=== PATIENT | female | born 1985 | race American Indian/Alaskan Native ===

== ENCOUNTER 2020-11-12 20:31 | Emergency (ER) | payer OTHER ==
[2020-11-12] MEDS ORDERED: cloNIDine 0.2 MG TAB PO STA (21:31)
[2020-11-12] MEDS ORDERED: ALBUTEROL 2.5 MG/3 ML NEBU IH ONE (21:35)
[2020-11-12] MEDS ORDERED: predniSONE 50 MG TAB PO STA (21:35)
--- NOTE | 2020-11-12 22:35 | XRay Report ---
CHEST 2 VIEWS INDICATION / CLINICAL INFORMATION: cough and cp. COMPARISON: None available. FINDINGS: SUPPORT DEVICES: None. HEART / MEDIASTINUM: No significant abnormality. LUNGS / PLEURA: No significant pulmonary or pleural abnormality. No pneumothorax. ADDITIONAL FINDINGS: No significant additional findings. IMPRESSION: 1. No acute findings. Signer Name: Deven Keen MD Signed: 11/12/2020 10:30 PM Workstation Name: [id number]
[2020-11-13] MEDS ORDERED: ALBUTEROL 2.5 MG/3 ML NEBU IH ONE (00:38)
[2020-11-13] MEDS ORDERED: predniSONE 50 MG TAB PO STA (00:38)
[2020-11-13] MEDS ORDERED: cloNIDine 0.2 MG TAB PO STA (00:38)
[2020-11-13 02:03] VITALS: BP 148/102
== END 2020-11-13 03:30 | disposition home or self-care (01) ==
LOC: ED 20:31
DX: R07.89 Other chest pain (principal); R05 Cough
CPT/HCPCS: 71046; 93005; 94640; 99283; J7512; 94644

== ENCOUNTER 2021-01-19 17:43 | Emergency (ER) | payer OTHER ==
[2021-01-19 18:08] VITALS: BP 212/141
[2021-01-19] MEDS ORDERED: cloNIDine 0.1 MG TAB PO ONE (18:09)
--- NOTE | 2021-01-19 18:11 | Event Note ---
ED Screening Note ED Screening Note: Patient is a 35-year-old female presents emergency room complaints of substernal chest pain that began a couple days ago She states it feels like a sharp pain She has associated shortness of breath She denies any radiation of the pain She denies any fever, nausea, vomiting, diarrhea Past medical history of hypertension and COPD and asthma She states that she is no longer smoking She reports that she took 4 medications this morning for her blood pressure This initial assessment/diagnostic orders/clinical plan/treatment(s) is/are subject to change based on patients health status, clinical progression and re- assessment by fellow clinical providers in the ED. Further treatment and workup at subsequent clinical providers discretion. Patient/guardian urged not to elope from the ED as their condition may be serious if not clinically assessed and managed. Initial orders include: Patient is tachycardic but breath sounds are clear Chest pain protocol ordered Patient given 0.1 mg of clonidine pt will need to go to the MAIN ED [facility] for MD erwin
[2021-01-19 18:55] LABS: Basophils # (Auto) 0.1 K/mm3 (0.0-0.1); Basophils % (Auto) 0.6 % (0.0-1.8); Eosinophils # (Auto) 0.5 K/mm3 (0.0-0.4); Eosinophils % (Auto) 5.1 % (0.0-4.3); Hematocrit 35.9 % (30.3-42.9); Lymphocytes # (Auto) 2.7 K/mm3 (1.2-5.4); Lymphocytes % (Auto) 29.9 % (13.4-35.0); Mean Corpuscular HGB Conc 34 % (30-34); Mean Corpuscular Volume 89 fl (79-97); Monocytes # (Auto) 0.7 K/mm3 (0.0-0.8); Monocytes % (Auto) 7.8 % (0.0-7.3); Platelet Count 332 K/mm3 (140-440); Red Blood Count 4.04 M/mm3 (3.65-5.03); Red Cell Distribution Width 14.8 % (13.2-15.2)
[2021-01-19 19:11] LABS: Alanine Aminotransferase 15 units/L (7-56); Albumin 3.6 g/dL (3.9-5); BUN/Creatinine Ratio 13; Blood Urea Nitrogen 12 mg/dL (7-17); Calcium 8.7 mg/dL (8.4-10.2); Hemolysis Index 6
--- NOTE | 2021-01-27 17:20 | Electrocardiograph Report ---
[facility] Test Date: 2021-01-19 Test Time: 18:15:48 Pat Name: CLARISSA DARDEN Department: Room: Gender: F Supervisor [employer]: : 1985 Requested By: DELMA OLMSTEAD Order Number: [id number] Reading MD: Luis Constantino Measurements Intervals Margaret Rate: 99 P: 57 OK: 182 QRS: 55 QRSD: 85 T: 36 QT: 382 QTc: 490 Interpretive Statements Sinus rhythm Probable left atrial enlargement No previous ECG available for comparison Electronically Signed On 01-27-2021 17:20:19 EDT by Luis Constantino
== END 2021-01-20 03:05 ==
LOC: ED 17:43
DX: R07.89 Other chest pain (principal); Z53.21 Procedure and treatment not carried out due to patient leaving prior to being seen by health care provider
CPT/HCPCS: 36415; 80053; 84484; 84703; 85025; 93005